=== PATIENT | male | born 1990 | race Caucasian/White ===

== ENCOUNTER → 2019-05-29 | Outpatient (CLI) | payer MEDICAID | LOC: M OUTALCOH 10:06 | PROVIDERS: ATTEND Psychiatry & Neurology Psychiatry | DX: Z13.39 Encounter for screening examination for other mental health and behavioral disorders (principal); F10.20 Alcohol dependence, uncomplicated; F12.10 Cannabis abuse, uncomplicated ==

== ENCOUNTER 2019-06-12 16:00 | Outpatient (RCR) | payer MEDICAID | END 2019-06-14 | LOC: M OUTALCOH 16:00 | PROVIDERS: ATTEND Psychiatry & Neurology Psychiatry | DX: F10.20 Alcohol dependence, uncomplicated (principal); Z72.0 Tobacco use ==

== ENCOUNTER 2019-07-10 16:00 | Outpatient (RCR) | payer MEDICAID | END 2019-07-14 | LOC: M OUTALCOH 16:00 | PROVIDERS: ATTEND Psychiatry & Neurology Psychiatry | DX: F10.20 Alcohol dependence, uncomplicated (principal); Z72.0 Tobacco use ==

== ENCOUNTER 2019-08-13 14:00 | Outpatient (RCR) | payer MEDICAID ==
[~2019-08-13 14:00] MED LIST: PARO20TA3
== END 2019-08-14 ==
LOC: M OUTALCOH 14:00
PROVIDERS: ATTEND Psychiatry & Neurology Psychiatry
DX: F10.20 Alcohol dependence, uncomplicated (principal); F12.10 Cannabis abuse, uncomplicated; Z72.0 Tobacco use

== ENCOUNTER 2019-08-27 20:56 | Emergency (ER) | payer OTHER ==
[2019-08-27] MEDS ORDERED: ETOMIDATE INJ 20MG/10ML VIAL ONE (20:57)
[2019-08-27] MEDS ORDERED: SUCCINYLCHOLINE 100 MG/5 ML SYRINGE (J0330) ONE (20:57)
[2019-08-27] MEDS ORDERED: ROCURONIUM BROMIDE 50 MG/5 ML VIAL ONE ×2 (20:57)
[2019-08-27] MEDS ORDERED: propofoL 1,000 MG in IV 1 EA IV SCH (21:13)
[2019-08-27] MEDS ORDERED: LIDOCAINE 2% 5ML JELLY UROJET TOP ONE (21:15)
[2019-08-27] MEDS ORDERED: NS 1,000 ML IV ONE ×2 (21:15→21:30)
[2019-08-27 21:19] LABS: BASO # 0.1 10^3/uL (0.0-0.2); BASO % 0.6 % (0.0-1.0); EOS # 0.1 10^3/uL (0.0-0.5); EOS % 0.5 % (0.0-3.0); HEMATOCRIT 49.7 % (42.0-52.0); HEMOGLOBIN 16.9 g/dl (13.5-17.5); LYMPH # 2.8 10^3/uL (1.5-5.0); MEAN CORPUSCULAR HEMOGLOBIN 31.1 pg (27.0-33.0); MEAN CORPUSCULAR VOLUME 91.4 fl (80.0-96.0); MONO # 0.8 10^3/uL (0.0-0.8); MONO % 4.7 % (0.0-5.0); NEUTROPHILS # 13.5 10^3/uL (1.5-8.5); NEUTROPHILS % 76.8 % (36.0-66.0); PLATELET COUNT, AUTOMATED 318 10^3/uL (150-450); RED BLOOD COUNT 5.44 10^6/uL (4.30-6.10); WHITE BLOOD COUNT 17.6 10^3/uL (4.0-10.0)
[2019-08-27] MEDS ORDERED: ISOVUE-370 76% 100ML VIAL (Q9967) As Ordered ONE (21:20)
[2019-08-27 21:28] LABS: INR 1.01; PARTIAL THROMBOPLASTIN TIME 24.6 SECONDS (25.0-38.4)
[2019-08-27] MEDS ORDERED: MIDAZOLAM INJ 5 MG/ML VIAL (J2250) IV STA (21:58)
[2019-08-27 21:59] LABS: ALBUMIN 4.1 GM/DL (3.2-5.2); ALT/SGPT 84 U/L (12-78); AMYLASE 30 U/L (25-115); BILIRUBIN,DIRECT 0.1 MG/DL (0.0-0.2); BILIRUBIN,TOTAL 0.3 MG/DL (0.2-1.0); BLOOD UREA NITROGEN 14 MG/DL (7-18); CALCIUM LEVEL 7.9 MG/DL (8.5-10.1); CARBON DIOXIDE LEVEL 21 MEQ/L (21-32); CHLORIDE LEVEL 107 MEQ/L (98-107); CK-MB VALUE MASS 44.7 NG/ML (<3.6); CPK CREATINE PHOSPHOKINASE 1439 U/L (39-308); CREATININE FOR GFR 1.26 MG/DL (0.70-1.30); ETHYL ALCOHOL (ETHANOL) 0.313 % (0.000-0.010); GLOMERULAR FILTRATION RATE > 60.0 (>60); GLUCOSE, FASTING 120 MG/DL (70-100); LIPASE 244 U/L (73-393); MB/CK RELATIVE INDEX 3.11 (< OR =4); POTASSIUM SERUM 3.7 MEQ/L (3.5-5.1); SODIUM LEVEL 141 MEQ/L (136-145); TOTAL PROTEIN 7.5 GM/DL (6.4-8.2); TROPONIN I < 0.02 NG/ML (< 0.10)
[2019-08-27] MEDS ORDERED: MIDAZOLAM INJ 5 MG/ML VIAL (J2250) As Ordered ONE (21:59)
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
[2019-08-27 22:09] LABS: ABG BASE EXCESS -10.7 (-2.0-2.0); ABG HCO3 16.5 MEQ/L (22.0-26.0); ABG O2 SATURATION 98.2 % (95.0-99.0); ABG PARTIAL PRESSURE CO2 41.5 mmHg (35.0-45.0); ABG PARTIAL PRESSURE O2 139.8 mmHg (75.0-100.0); ABG STANDARD HCO3 16.3 MEQ/L (22.0-26.0); ABG TOTAL CO2 17.8 MEQ/L (22.0-29.0)
[2019-08-27 22:13] LABS: ABG pH (ARTERIAL) 7.218 UNITS (7.350-7.450)
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
[2019-08-27] MEDS: MIDAZOLAM INJ 5 MG/ML VIAL (J2250) IV PRN ×3 (22:27→23:32)
[2019-08-27] MEDS: ROCURONIUM BROMIDE 50 MG/5 ML VIAL IV PRN ×3 (22:27→23:32)
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
[2019-08-27 22:43] LABS: AMPHETAMINES LEVEL URINE NEGATIVE (NEGATIVE); BARBITURATES URINE NEGATIVE (NEGATIVE); BENZODIAZEPINES URINE POSITIVE (NEGATIVE); CANNABINOIDS URINE NEGATIVE (NEGATIVE); COCAINE METABOLITE URINE NEGATIVE (NEGATIVE); METHADONE URINE NEGATIVE (NEGATIVE); OPIATES URINE NEGATIVE (NEGATIVE); PHENCYCLIDINE URINE NEGATIVE (NEGATIVE)
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
[2019-08-27] MEDS ORDERED: ADACEL/BOOSTRIX VACCINE (DIPHTH/PERTUSS/ACELL/TETANUS)0.5ML SYR (90715) IM ONE (23:00)
[2019-08-27] MEDS ORDERED: ceFAZolin SOD 2 GM in IV 1 EA IV ONE (23:00)
[2019-08-28 00:15] VITALS: BP 97/49
[2019-08-28] MEDS ORDERED: MIDAZOLAM INJ 5 MG/ML VIAL (J2250) As Ordered ONE ×2 (00:15→00:16)
--- NOTE | 2019-08-28 01:22 | REP ---
Clinical: Trauma. Technique: Portable supine AP chest. Findings: Endotracheal tube 3 cm above the devi. Nasogastric tube courses below left hemidiaphragm. Mediastinum and cardiac silhouette are within normal limits. Poor inspiratory effort limits evaluation and mild atelectasis cannot be excluded. No obvious effusion or pneumothorax. Skeletal structures appear intact. Impression: 1. Lines and tubes in satisfactory position. 2. No obvious acute cardiopulmonary process. Minimal atelectasis cannot be excluded. Electronically Signed by Michael Lynn MD 08/28/2019 01:13 A
[2019-08-28] MEDS ORDERED: METAL LOCK LOOP XX ONE (02:43)
== END 2019-08-28 00:04 | disposition short-term general hospital (02) ==
LOC: EDBD 20:56 → M ED 20:56
DX: S09.90XA Unspecified injury of head, initial encounter (principal); S06.0X9A Concussion with loss of consciousness of unspecified duration, initial encounter; S02.401A Maxillary fracture, unspecified side, initial encounter for closed fracture; S02.32XA Fracture of orbital floor, left side, initial encounter for closed fracture; R40.2432 Glasgow coma scale score 3-8, at arrival to emergency department; F10.129 Alcohol abuse with intoxication, unspecified; E66.9 Obesity, unspecified; J98.11 Atelectasis; J90 Pleural effusion, not elsewhere classified; Z79.899 Other long term (current) drug therapy; V47.0XXA Car driver injured in collision with fixed or stationary object in nontraffic accident, initial encounter; Y92.9 Unspecified place or not applicable; Y93.9 Activity, unspecified; Y99.9 Unspecified external cause status
CPT/HCPCS: 31500; 36600; 51702; 70450; 70486; 71045; 71260; 72125; 72128; 72131; 74177; 80047; 80048; 80076; 80307; 81001; 82150; 82550; 82553; 82803; 83690; 84484; 85025; 85610; 85730; 86850; 86900; 86901; 90471; 90715; 93041; 96374; 99291; 99292; G0480; J0330; J0690; J2250; Q9967

== ENCOUNTER 2019-09-10 14:00 | Outpatient (RCR) | payer MEDICAID | END 2019-09-14 | LOC: M OUTALCOH 14:00 | PROVIDERS: ATTEND Psychiatry & Neurology Psychiatry | DX: F10.20 Alcohol dependence, uncomplicated (principal); F12.10 Cannabis abuse, uncomplicated; Z72.0 Tobacco use ==

== ENCOUNTER → 2020-03-19 | Outpatient (CLI) | payer MEDICAID | LOC: M OUTALCOH 08:00 | PROVIDERS: ATTEND Psychiatry & Neurology Addiction Medicine | DX: F10.20 Alcohol dependence, uncomplicated (principal) ==

== ENCOUNTER → 2020-04-14 | Outpatient (RCR) | payer MEDICAID | LOC: M OUTALCOH 03-25 09:00 | PROVIDERS: ATTEND Psychiatry & Neurology Addiction Medicine | DX: F10.20 Alcohol dependence, uncomplicated (principal); Z72.0 Tobacco use ==

== ENCOUNTER → 2020-05-14 | Outpatient (RCR) | payer MEDICAID | LOC: M OUTALCOH 04-16 07:46 | PROVIDERS: ATTEND Psychiatry & Neurology Addiction Medicine | DX: F10.20 Alcohol dependence, uncomplicated (principal); Z72.0 Tobacco use ==

== ENCOUNTER 2020-06-11 13:30 | Outpatient (RCR) | payer MEDICAID | END 2020-06-14 | LOC: M OUTALCOH 13:30 | PROVIDERS: ATTEND Psychiatry & Neurology Addiction Medicine | DX: F10.20 Alcohol dependence, uncomplicated (principal); Z72.0 Tobacco use ==

== ENCOUNTER 2020-06-30 14:00 | Outpatient (RCR) | payer MEDICAID | END 2020-07-14 | LOC: M OUTALCOH 14:00 | PROVIDERS: ATTEND Psychiatry & Neurology Addiction Medicine | DX: F10.20 Alcohol dependence, uncomplicated (principal); Z72.0 Tobacco use ==

== ENCOUNTER → 2020-08-14 | Outpatient (RCR) | payer MEDICAID | LOC: M OUTALCOH 07-16 13:23 | PROVIDERS: ATTEND Psychiatry & Neurology Addiction Medicine | DX: F10.20 Alcohol dependence, uncomplicated (principal); Z72.0 Tobacco use ==

== ENCOUNTER 2020-09-12 14:32 | Outpatient (RCR) | payer MEDICAID | END 2020-09-14 | LOC: M OUTALCOH 14:32 | PROVIDERS: ATTEND Psychiatry & Neurology Addiction Medicine | DX: F10.20 Alcohol dependence, uncomplicated (principal); Z72.0 Tobacco use ==

== ENCOUNTER 2020-10-10 11:08 | Outpatient (RCR) | payer MEDICAID | END 2020-10-12 | LOC: M OUTALCOH 11:08 | PROVIDERS: ATTEND Psychiatry & Neurology Addiction Medicine | DX: F10.20 Alcohol dependence, uncomplicated (principal); Z72.0 Tobacco use ==

== ENCOUNTER 2020-11-11 14:00 | Outpatient (RCR) | payer MEDICAID | END 2020-11-12 | LOC: M OUTALCOH 14:00 | PROVIDERS: ATTEND Psychiatry & Neurology Addiction Medicine | DX: F10.20 Alcohol dependence, uncomplicated (principal); Z72.0 Tobacco use ==

== ENCOUNTER 2020-12-09 16:00 | Outpatient (RCR) | payer MEDICAID | END 2020-12-12 | LOC: M OUTALCOH 16:00 | PROVIDERS: ATTEND Psychiatry & Neurology Psychiatry | DX: F10.20 Alcohol dependence, uncomplicated (principal); Z72.0 Tobacco use ==

== ENCOUNTER 2021-01-13 15:26 | Outpatient (RCR) | payer MEDICAID | END 2021-02-11 | LOC: M OUTALCOH 15:26 | PROVIDERS: ATTEND Psychiatry & Neurology Psychiatry | DX: F10.20 Alcohol dependence, uncomplicated (principal); Z72.0 Tobacco use ==

== ENCOUNTER → 2021-01-13 | Outpatient (CLI) | payer OTHER, MEDICAID ==
[2021-01-13 13:53] LABS: BASO # 0.1 10^3/uL (0.0-0.2); BASO % 0.7 % (0.0-1.0); EOS # 0.1 10^3/uL (0.0-0.5); EOS % 1.9 % (0.0-3.0); HEMATOCRIT 48.6 % (42.0-52.0); HEMOGLOBIN 15.8 g/dl (13.5-17.5); LYMPH # 1.7 10^3/uL (1.5-5.0); LYMPH % 23.9 % (24.0-44.0); MEAN CORPUSCULAR HEMOGLOBIN 28.9 pg (27.0-33.0); MEAN CORPUSCULAR HGB CONC 32.5 g/dl (32.0-36.5); MEAN CORPUSCULAR VOLUME 88.8 fl (80.0-96.0); MONO # 0.5 10^3/uL (0.0-0.8); MONO % 7.6 % (2.0-8.0); NEUTROPHILS # 4.5 10^3/uL (1.5-8.5); NEUTROPHILS % 65.3 % (36.0-66.0); PLATELET COUNT, AUTOMATED 254 10^3/uL (150-450); RED BLOOD COUNT 5.47 10^6/uL (4.30-6.10); WHITE BLOOD COUNT 6.9 10^3/uL (4.0-10.0)
[2021-01-13 14:20] LABS: RHEUMATOID FACTOR QUANT < 10.0 IU/ML (<15.0)
[2021-01-13 15:04] LABS: HEPATITIS B SURFACE ANTIBODY NEGATIVE (POSITIVE)
[2021-01-13 15:15] LABS: HEPATITIS B SURFACE ANTIGEN NEGATIVE (NEGATIVE)
[2021-01-13 15:42] LABS: HEPATITIS B CORE ANTIBODY IGM NEGATIVE (NEGATIVE)
[2021-01-13 15:43] LABS: HIV 1&2 SCREEN CENTAUR NEGATIVE (NEGATIVE)
[2021-01-13 15:45] LABS: HEPATITIS A ANTIBODY IGM NEGATIVE (NEGATIVE)
== END ==
LOC: M LAB 11:46
PROVIDERS: ATTEND Dermatology
DX: L40.9 Psoriasis, unspecified (principal)

== ENCOUNTER → 2021-01-21 | Outpatient (REF) | payer MEDICAID, OTHER | LOC: M LAB REF 13:58 | PROVIDERS: ATTEND Dermatology | DX: D22.9 Melanocytic nevi, unspecified (principal); L72.0 Epidermal cyst ==

== ENCOUNTER 2021-02-17 11:39 | Outpatient (RCR) | payer MEDICAID | END 2021-03-14 | LOC: M OUTALCOH 11:39 | PROVIDERS: ATTEND Psychiatry & Neurology Psychiatry | DX: F10.20 Alcohol dependence, uncomplicated (principal); Z72.0 Tobacco use ==

== ENCOUNTER 2021-04-07 16:00 | Outpatient (RCR) | payer MEDICAID | END 2021-04-14 | LOC: M OUTALCOH 16:00 | PROVIDERS: ATTEND Psychiatry & Neurology Psychiatry | DX: F10.20 Alcohol dependence, uncomplicated (principal); Z72.0 Tobacco use ==

== ENCOUNTER 2021-05-19 15:49 | Outpatient (RCR) | payer MEDICAID | END 2021-06-14 | LOC: M OUTALCOH 15:49 | PROVIDERS: ATTEND Psychiatry & Neurology Psychiatry | DX: F10.20 Alcohol dependence, uncomplicated (principal); Z72.0 Tobacco use ==

== ENCOUNTER → 2023-09-02 | Outpatient (REF) | payer OTHER | LOC: M SFHCDERM 14:36 | PROVIDERS: ATTEND Dermatology | DX: L40.9 Psoriasis, unspecified (principal); Z79.899 Other long term (current) drug therapy ==

== ENCOUNTER → 2024-05-16 | Outpatient (REF) | payer OTHER ==
[2024-05-16 18:53] LABS: ALBUMIN 4.5 G/DL (3.2-5.2); ALKALINE PHOSPHATASE 52 U/L (46-116); ALT/SGPT 25 U/L (7.0-40); AST/SGOT 18 U/L (<34); BILIRUBIN,TOTAL 0.9 MG/DL (0.3-1.2); BLOOD UREA NITROGEN 17 MG/DL (9-23); CALCIUM LEVEL 9.8 MG/DL (8.5-10.1); CARBON DIOXIDE LEVEL 28 MMOL/L (20-31); CHLORIDE LEVEL 104 MMOL/L (98-107); CHOLESTEROL LEVEL 167 MG/DL (<200); CHOLESTEROL RISK RATIO 2.78 (<5); CREATININE FOR GFR 0.73 MG/DL (0.70-1.30); GLOMERULAR FILTRATION RATE > 60.0 (>60); GLUCOSE, FASTING 87 MG/DL (60-100); HDL CHOLESTEROL 59.9 MG/DL (>40); LDL CHOLESTEROL 91.7 MG/DL (<100); NON-HDL-C 107.1 MG/DL; POTASSIUM SERUM 4.6 MMOL/L (3.5-5.1); SODIUM LEVEL 136 MMOL/L (136-145); TOTAL PROTEIN 7.3 G/DL (5.7-8.2); TRIGLYCERIDES LEVEL 77 MG/DL (<150)
== END ==
LOC: M SFHCCLAY 10:51
PROVIDERS: ATTEND Nurse Practitioner Family
DX: I10 Essential (primary) hypertension (principal); F10.11 Alcohol abuse, in remission; F41.8 Other specified anxiety disorders; G47.00 Insomnia, unspecified

== ENCOUNTER → 2024-06-18 | Outpatient (CLI) | payer OTHER | LOC: M CLY 10:44 | PROVIDERS: ATTEND Nurse Practitioner Family | DX: M25.562 Pain in left knee (principal); M79.89 Other specified soft tissue disorders; M25.462 Effusion, left knee ==

== ENCOUNTER → 2024-08-22 | Outpatient (CLI) | payer MEDICAID | LOC: M OUTALCOH 13:36 | PROVIDERS: ATTEND Psychiatry & Neurology Psychiatry | DX: F10.20 Alcohol dependence, uncomplicated (principal) ==